=== PATIENT | male | born 1970 | race African-American/Black ===

== ENCOUNTER 2016-06-30 23:08 | Emergency (ER) | payer SELFPAY ==
[2016-06-30] MEDS ORDERED: DOXYCYCLINE MONOHYDRATE 100 MG CAPSULE PO ONE (23:35)
--- NOTE | 2016-06-30 23:36 | ED Physician Documentation ---
General Adult - HISTORIAN Historian: patient - HPI Stated Complaint: Irritation to top of posterior thigh/buttock Chief Complaint: General Adult Onset: days ago Timing: still present Severity: moderate Further Comments: yes (Pt is a 46 yo male with an abscess in L buttock x 3 days. No n/v, fever.) - ROS CONST: no problems EYES/ENT: none CVS/RESP: none GI/: none MS/SKIN/LYMPH: other (abscess L buttock) - PAST HX Past History: other (previous abscess in thigh) Other History: none Surgeries/Procedures: none Allergies/Adverse Reactions: Allergies Allergy/AdvReac Type Severity Reaction Status Date / Time No Known Allergies Allergy Verified 06/30/16 23:28 Home Medications: Ambulatory Orders Medication Instructions Recorded Doxycycline Monohydrate 100 mg PO Q12H #20 tablet 06/30/16 - SOCIAL HX Smoking History: non-smoker - FAMILY HX Family History: No - VITAL SIGNS Vital Signs: Vital Signs Temp Pulse Resp BP Pulse Ox 98 F 91 H 20 133/74 98 06/30/16 23:09 06/30/16 23:09 06/30/16 23:09 06/30/16 23:09 06/30/16 23:09 - REVIEWED ASSESSMENTS Nursing Assessment Reviewed: Yes Vitals Reviewed: Yes Progress - Progress Progress: Pt declined I&D, trial of abx only. Will return if sx unimproved. Rx Doxycycline 100 mg po bid x 10 days, 1 RF, 1st dose in ER. General Adult Physical Exam - PHYSICAL EXAM GENERAL APPEARANCE: mild distress EENT: pharynx normal NECK: normal inspection, supple RESPIRATORY: no resp distress, chest non-tender, breath sounds normal CVS: reg rate & rhythm, heart sounds normal ABDOMEN: soft, normal bowel sounds SKIN: other (4 cm abscess, L buttock, warm, tender) NEURO: oriented X3 Discharge Clincal Impression: Abscess of left buttock Prescriptions: Doxycycline Monohydrate 100 mg PO Q12H #20 tablet Referrals: Primary Doctor,No [Primary Care Provider] - Home Medications: Ambulatory Orders Doxycycline Monohydrate 100 mg PO Q12H #20 tablet 06/30/16 Condition: Good Disposition: 01 HOME, SELF-CARE Decision to Admit: NO Decision Time: 23:36
[2016-06-30 23:42] VITALS: BP 133/74
== END 2016-06-30 23:40 | disposition home or self-care (01) ==
LOC: ED 23:08
DX: L02.31 Cutaneous abscess of buttock (principal)
CPT/HCPCS: 99283

== ENCOUNTER 2016-12-26 11:03 | Outpatient (CLI) | payer OTHER ==
[2016-12-27 09:04] LABS: eGFR (African) > 60; eGFR (Non-African) > 60
== END 2016-12-26 11:04 ==
LOC: LAB 11:03
PROVIDERS: ATTEND Physician Assistant
DX: Z00.00 Encounter for general adult medical examination without abnormal findings (principal); Z13.6 Encounter for screening for cardiovascular disorders
CPT/HCPCS: 36415; 80053; 80061

== ENCOUNTER 2017-11-15 16:32 | Emergency (ER) | payer MEDICARE, OTHER ==
[2017-11-15] MEDS ORDERED: AZITHROMYCIN 250 MG TABLET PO ONE (17:13)
--- NOTE | 2017-11-15 17:16 | ED Physician Documentation ---
Male Genitourinary Problems - HISTORIAN Historian: patient - HPI Chief Complaint: Male Genitourinary Problems Onset: days ago Duration: worse Severity: severe - Associated Symptoms Penile Discharge Descripiton: watery, thin - Sexual History Sexual History: unprotected intercourse, known exp. to STD - ROS CONST: none GI/: denies: nausea, vomiting, abdominal pain, problems urinating MS/SKIN/LYMPH: none CVS/RESP: none EYES/ENT: none NEURO/PSYCH: denies: fainting, dizziness, tingling, numbness, anxiety, depression, other - PAST HX Past History: denies: erectile dysfunction Cardiac Disease: none Surgeries/Procedures: none Allergies/Adverse Reactions: Allergies Allergy/AdvReac Type Severity Reaction Status Date / Time sulfamethoxazole AdvReac Rash Verified 11/15/17 17:23 [From Bactrim] trimethoprim [From Bactrim] AdvReac Rash Verified 11/15/17 17:23 Home Medications: Ambulatory Orders Medication Instructions Recorded NK 11/15/17 - SOCIAL HX Smoking History: cigarettes - FAMILY HX Family History: denies: none - VITAL SIGNS Vital Signs: Vital Signs Temp Pulse Resp BP Pulse Ox 97.9 F 75 14 118/72 95 11/15/17 16:33 11/15/17 18:34 11/15/17 18:34 11/15/17 18:34 11/15/17 16:33 - REVIEWED ASSESSMENTS Nursing Assessment Reviewed: Yes Vitals Reviewed: Yes ED Results Lab/Radiology - Orders Orders: ED Orders Category Date Time Status GC [CHLAMYDIA & GONORRHOEAE] Stat Lab 11/15/17 18:15 Received Azithromycin [Zithromax] Med 11/15/17 17:13 Discontinued 1,000 mg PO NOW ONE Lidocaine 1% 5ml(IM or SUTURE) [Xylocaine] Med 11/15/17 17:27 Discontinued 30 mg IJ NOW ONE cefTRIAXone SODIUM [Rocephin] Med 11/15/17 17:13 Discontinued 125 mg IM NOW ONE Male Genitourinary Problems - EXAM General Appearance: mild distress Abdomen: non-tender, no organomegaly Genitals: nml inspection, testicles nml palp.. No: urethral discharge, testicular tenderness EENT: eye inspection normal, DEZ Respiratory: no resp distress CVS: reg rate & rhythm Neuro/Psych: oriented X3 Skin: normal color, warm/dry, NR, INT, PAL, DR Discharge Clincal Impression: Possible exposure to STD Referrals: Primary Doctor,No [Primary Care Provider] - 2 Days Additional Instructions: Use a condom during intercourse. You have been treated in the ER to cover gonorrhea and chlamydia If you are positive with will contact you. No intercourse until drainage has resolved and you have test results back. Condition: Stable Disposition: 01 HOME, SELF-CARE Decision to Admit: NO Decision Time: 17:14
[2017-11-15 17:22] VITALS: BP 118/72
[2017-11-15] MEDS ORDERED: Lidocaine 1% 5ml(IM or SUTURE)(PAIN CLINIC) IJ ONE (17:27)
== END 2017-11-15 17:45 | disposition home or self-care (01) ==
LOC: ED 16:32
DX: R36.9 Urethral discharge, unspecified (principal)
CPT/HCPCS: 87491; 87591; J0696; 96372; 99283

== ENCOUNTER 2018-03-01 17:55 | Emergency (ER) | payer MEDICARE, OTHER ==
[2018-03-01 18:15] VITALS: BP 170/84
[2018-03-01] MEDS ORDERED: IBUPROFEN 200 MG TABLET PO ONE (18:18)
[2018-03-01] MEDS ORDERED: ACETAMINOPHEN 500 MG TABLET PO ONE (18:18)
--- NOTE | 2018-03-01 18:33 | ED Physician Documentation ---
General Adult - HISTORIAN Historian: patient - HPI Stated Complaint: low back pain Chief Complaint: General Adult Additional Information: Low back and Left side pain for a month. Feels like a pulled muscle. Jus gave him tylenol and a muscle relaxant and both helped. Denies unusual activity. Says he is on disability for head injury and can't afford meds. Must have a script. Able to quickly bend down to retireve coat from floor and to climb on stretcher. - ROS CONST: no problems NEURO/PSYCH: denies: tingling, numbness - PAST HX Past History: other (head injury) Allergies/Adverse Reactions: Allergies Allergy/AdvReac Type Severity Reaction Status Date / Time sulfamethoxazole AdvReac Rash Verified 03/01/18 18:18 [From Bactrim] trimethoprim [From Bactrim] AdvReac Rash Verified 03/01/18 18:18 Home Medications: Ambulatory Orders Medication Instructions Recorded NK 11/15/17 - SOCIAL HX Smoking History: cigar (quit 6 months ago) Alcohol Use: occasionally Drug Use: none - FAMILY HX Family History: No - VITAL SIGNS Vital Signs: Vital Signs Temp Pulse Resp BP Pulse Ox 98.4 F 87 16 170/84 97 03/01/18 18:11 03/01/18 18:11 03/01/18 18:11 03/01/18 18:11 03/01/18 18:11 - REVIEWED ASSESSMENTS Nursing Assessment Reviewed: Yes Vitals Reviewed: Yes ED Results Lab/Radiology - Orders Orders: ED Orders Category Date Time Status Acetaminophen [Tylenol Extra Strength] Med 03/01/18 18:18 Discontinued 1,000 mg PO NOW ONE Ibuprofen [Advil] Med 03/01/18 18:18 Discontinued 600 mg PO NOW ONE General Adult Physical Exam - PHYSICAL EXAM GENERAL APPEARANCE: no distress EENT: eye inspection normal, ENT inspection normal NECK: normal inspection, supple RESPIRATORY: no resp distress, breath sounds normal CVS: reg rate & rhythm, heart sounds normal BACK: normal inspection, no CVA tenderness, other (no vertebral tenderness. no detectable muscle spasm) SKIN: warm/dry, normal color EXTREMITIES: normal range of motion (gait and stance) NEURO: oriented X3, CN's nml as tested, motor nml, sensation nml, other (reflexes 2+ throughout) Discharge Clincal Impression: Lumbar strain Qualifiers: Encounter type: initial encounter Qualified Code(s): S39.012A - Strain of muscle, fascia and tendon of lower back, initial encounter Referrals: Primary Doctor,No [Primary Care Provider] - 2 Days Condition: Good Disposition: 01 HOME, SELF-CARE Decision to Admit: NO Decision Time: 18:30
== END 2018-03-01 18:33 | disposition home or self-care (01) ==
LOC: ED 17:55
DX: S39.012A Strain of muscle, fascia and tendon of lower back, initial encounter (principal)
CPT/HCPCS: 99282; 99283

== ENCOUNTER 2018-03-08 18:18 | Emergency (ER) | payer MEDICARE ==
--- NOTE | 2018-03-08 19:27 | ED Physician Documentation ---
Low Back Pain - HISTORIAN Historian: patient - HPI Stated Complaint: low back pain/scrotal pain Chief Complaint: Low Back Pain/ Injury Additional Information: hx lifting w/near fall carol area lt sacroiliac and gluteal and lt inguinal dillon History: denies: history of chronic pain: (no prev sig back pain until in december pt moved prolonged lifting carol w/ large entertainment center lift in twist felt pop int pain since -relieved but not eliminated w/IBU 600 tid) Onset: other (december) Duration: continues in ED, intermittent, worse Context: lifting, turning, bending. denies: fall Where: home Other Injuries: back Severity: moderate Quality: burning, dull Associated Symptoms: difficulty walking. denies: fever, chills, sweating, constipation, incontinence, nausea, vomiting, problems urinating Relieved By: other (ibu-dont last) Further Comments: yes (some mild lt inguinal and testicular discomfort-not pain just dont feel right) - ROS CONST: no problems CVS/RESP: none EYES/ENT: none MS/SKIN/LYMPH: back pain. denies: neck pain, joint pain, leg swelling, ankle swelling Neuro/Psych: none GI/: denies: abdominal pain, black stools - PAST HX Past History: other (none) Other History: other Surgeries/Procedures: other (vasectomy) Allergies/Adverse Reactions: Allergies Allergy/AdvReac Type Severity Reaction Status Date / Time sulfamethoxazole AdvReac Rash Verified 03/08/18 18:45 [From Bactrim] trimethoprim [From Bactrim] AdvReac Rash Verified 03/08/18 18:45 Home Medications: Ambulatory Orders Medication Instructions Recorded NK 11/15/17 - SOCIAL HX Smoking History: non-smoker Alcohol Use: occasionally Drug Use: none - FAMILY HX Family History: no significant history - VITAL SIGNS Vital Signs: Vital Signs Temp Pulse Resp BP Pulse Ox 97.9 F 62 16 132/79 98 03/08/18 18:33 03/08/18 20:58 03/08/18 20:58 03/08/18 20:58 03/08/18 20:58 - REVIEWED ASSESSMENTS Nursing Assessment Reviewed: Yes Vitals Reviewed: Yes ED Results Lab/Radiology - Radiology Radiology Impressions: spondylolithisis - Orders Orders: ED Orders Category Date Time Status LUMBAR SPINE WITH OBLIQUES [L SPINE 4 VIEWS] [RAD] Stat Exams 03/08/18 Taken Low Back Pain/Injury - Physical Exam General Appearance: moderate distress EENT: eye inspection normal Neck: non-tender, painless ROM. No: vertebral point-tendernes, muscle spasm, decreased ROM Resp/CVS: breath sounds nml, lungs clear, reg. rate & rhythm Abdomen: non-tender Back: other (lt sacroiliac sig palp tenderness plul lt low lumbar some mild sciatic tenderness-no sig radiccular pain) Rectal/Genital: other (testicles non tender alondra cords no found ing hernia dlight soreness) Straight Leg Raising: Negative Left, Negative Right Neuro/Psych: oriented x3, motor nml, sensation nml, mood/affect nml, other (apparent sib lo back kpain arising from lying lynn sitting posn). No: difficulty walking Skin: warm/dry, normal color. No: cyanosis, diaphoresis, jaundice Discharge Clincal Impression: recurrentaccute back pain, spondylolithisis Referrals: Primary Doctor,No [Primary Care Provider] - 2 Days Condition: Good Disposition: 01 HOME, SELF-CARE Decision to Admit: NO Decision Time: 21:20
[2018-03-08 21:00] VITALS: BP 132/79
--- NOTE | 2018-03-09 06:40 | Diagnostic Imaging Report ---
KEVIN BRYANT [facility] [address] [facility] [address] Report Submission Date: Mar 08, 2018 7:55:38 PM CUSTOMER EXPERIENCE MANAGER Patient Study Name: ROMA MESSER Date: Mar 08, 2018 7:18:24 PM CUSTOMER EXPERIENCE MANAGER Modality Type: DX Gender: M Description: SPINE : 74 Institution: [facility] Physician: KEVIN BRYANT Lumbar spine, five views. History: Lower back pain and sciatic post lifting, pain since December. Findings: The vertebral body heights are normal. There is mild anterolisthesis of L5 on S1 present with mild facet arthropathy at L4-5 and S1. Sacroiliac joints are normal. Suspected L5 pars defect is also present. Impression: 1. Mild lower lumbar spondylosis. 2. L5 pars defects suspected with associated mild grade 1 anterolisthesis of L5 on S1. Electronically signed on Mar 08, 2018 7:55:38 PM CUSTOMER EXPERIENCE MANAGER by: Melvin KING
== END 2018-03-08 20:58 | disposition home or self-care (01) ==
LOC: ED 18:18
DX: M54.5 Low back pain (principal); M43.17 Spondylolisthesis, lumbosacral region
CPT/HCPCS: 72110; 99282; 99283

== ENCOUNTER 2018-09-08 16:38 | Emergency (ER) | payer OTHER ==
--- NOTE | 2018-09-08 17:22 | ED Physician Documentation ---
Dizziness - HISTORIAN Historian: patient - HPI Stated Complaint: dizzy Chief Complaint: Dizziness Additional Information: Patient presents to ED with dizziness. Patient states he was at work and stood up suddenly when he became dizzy. A bystander at work took his pulse and said it was fast. Patient reports not eating or drinking at all today. He was given a glass of water and a bag of potato chips upon leaving work. Upon arrival to ED he was feeling better. Timing: sudden onset, gone now Severity: mild Associated Symptoms: none Decreased Ability to Stand/ Walk: denies: weak Usually: walks w/o assistance Worsened By: changing position (standing) Further Comments: no - ROS CONST: none EYES/ENT: problems with vision GI/: denies: abdominal pain MS/SKIN/LYMPH: none NEURO/PSYCH: none CVS/RESP: denies: chest pain, shortness of breath - PAST HX Past History: none Cardiac Disease: none Surgeries/Procedures: none Allergies/Adverse Reactions: Allergies Allergy/AdvReac Type Severity Reaction Status Date / Time sulfamethoxazole AdvReac Rash Verified 03/08/18 18:45 [From Bactrim] trimethoprim [From Bactrim] AdvReac Rash Verified 03/08/18 18:45 Home Medications: Ambulatory Orders Medication Instructions Recorded NK 11/15/17 - SOCIAL HX Smoking History: non-smoker Alcohol Use: none Drug Use: none - FAMILY HX Family History: none - VITAL SIGNS Vital Signs: Vital Signs Temp Pulse Resp BP Pulse Ox 132/79 03/08/18 20:58 - REVIEWED ASSESSMENTS Nursing Assessment Reviewed: Yes Vitals Reviewed: Yes Progress - Progress Progress: 1700 Patient refuse IV fluids. States he will drink water. Dizziness Physical Exam - Physical Exam General Appearance: no distress EENT: DEZ Respiratory: no respiratory distress, breath sounds nml CVS: reg rate & rhythm, heart sounds normal Abdomen: soft Skin: warm/dry Neuro: nml orientation, nml speech, nml cognition, mood/affect nml Extremities: non-tender, no edema Cranial: nml as tested, no evidence of acute CVA Cerebellar: nml as tested Sensorimotor: motor nml Discharge Clincal Impression: Dizziness Referrals: Primary Doctor,No [Primary Care Provider] - 2 Days Additional Instructions: 1. Drink plenty of fluids to maintain proper hydration. Avoid caffeine and alcohol 2. Eat regularly 3. Follow up with PCP within 1 week 4. Return to ER for new or worsen symptoms Condition: Stable Disposition: 01 HOME, SELF-CARE Decision to Admit: NO Date of Decison to Admit: 09/08/18 Decision Time: 17:27
[2018-09-08 17:40] VITALS: BP 113/74
== END 2018-09-08 17:35 | disposition home or self-care (01) ==
LOC: ED 16:38
DX: R42 Dizziness and giddiness (principal)

== ENCOUNTER 2018-10-20 16:23 | Emergency (ER) | payer MEDICARE, OTHER ==
[2018-10-20 17:15] VITALS: BP 118/79
--- NOTE | 2018-10-20 17:32 | ED Physician Documentation ---
Hip Injury/Pain - HISTORIAN Historian: patient - HPI Stated Complaint: R hip pain Chief Complaint: Hip Pain Additional Information: Patient is a 48 year old male that presents to the ER ambulatory with complaint of right hip pain that has been going on all his life. Pt states he broke his right leg (no surgical repair) as a baby and he has been having trouble with it since that time. Patient states while at work he has to stoop and stand back up, which aggravates the pain. He has not taken anything OTC for relief as he states that does not help. He appears to be in no acute distress. Discussed physical therapy if xray shows no acute fracture; he agrees. Onset: other (Years) Where: work Severity: mild Duration: intermittent pain Context: no injury Symptoms Prior to Fall: none Other Injuries: none Subsequent Symptoms: denies: sensory loss, motor loss, weakness - ROS CONST: no problems RESP: denies: shortness of breath GI/: none EYES/ENT: none MS/SKIN/LYMPH: denies: neck pain, ankle swelling, leg swelling NEURO/PSYCH: denies: anxiety, depression - PAST HX Cardiac Disease: none PE Risk Factors: none Immunizations: UTD Allergies/Adverse Reactions: Allergies Allergy/AdvReac Type Severity Reaction Status Date / Time sulfamethoxazole AdvReac Rash Verified 10/20/18 16:44 [From Bactrim] trimethoprim [From Bactrim] AdvReac Rash Verified 10/20/18 16:44 Home Medications: Ambulatory Orders Medication Instructions Recorded Naproxen [Naprosyn] 500 mg PO BID #20 tablet 10/20/18 - SOCIAL HX Smoking History: greater than 1 pack/day Alcohol Use: none Drug Use: marijuana - FAMILY HX Family History: No - VITAL SIGNS Vital Signs: Vital Signs Temp Pulse Resp BP Pulse Ox 98.4 F 86 16 118/79 97 10/20/18 17:52 10/20/18 17:52 10/20/18 17:52 10/20/18 17:52 10/20/18 17:52 - REVIEWED ASSESSMENTS Nursing Assessment Reviewed: Yes Vitals Reviewed: Yes ED Results Lab/Radiology - Radiology Radiology Impressions: Right hip 2 views Date of Exam: October 20, 2018. History: PT STATES CHRONIC RT HIP PAIN, WORSENING OVER THE LAST 3 YEARS (Hx) / Findings: Mild degenerative osteoarthritic changes are present. There is no evidence of acute fracture or dislocation. The visualized portion of the right pelvis is intact. Impression: Mild degenerative osteoarthritic changes. Electronically signed on Oct 20, 2018 5:35:17 PM CDT by: Clarita Blanco - Orders Orders: ED Orders Category Date Time Status RT HIP 2VIEW COMPLETE [RAD] Stat Exams 10/20/18 Completed Hip Injury/Pain Physical Exam - EXAM General Appearance: no acute distress, alert Extremities: non-tender, nml ROM, no obvious injury EENT: DEZ Neck: nml inspection Respiratory: breath sounds nml CVS: heart sounds normal Back: non-tender, painless ROM Skin: warm/dry Neuro/Psych: oriented x3, neuro grossly intact, mood/affect nml Discharge Clincal Impression: Chronic right hip pain Prescriptions: Naproxen [Naprosyn] 500 mg PO BID #20 tablet Referrals: Primary Doctor,No [Primary Care Provider] - 2 Days Additional Instructions: Take Naproxen 500mg by mouth twice a day for 10 days Will send referral for physical therapy May use heating pad May use selam Lopez aspercreme Follow up with PCP Condition: Good Disposition: 01 HOME, SELF-CARE Decision to Admit: NO Decision Time: 19:22
--- NOTE | 2018-10-20 18:13 | Diagnostic Imaging Report ---
HEATHER GUILLEN [facility] [address] [facility] [address] [address] Report Submission Date: Oct 20, 2018 5:35:17 PM CDT Patient Study Name: ROMA MESSER Date: Oct 20, 2018 4:59:05 PM CDT Modality Type: DX Gender: M Description: RT HIP 2VIEW COMPLETE : 74 Institution: [facility] Physician: HEATHER GUILLEN Right hip 2 views Date of Exam: October 20, 2018. History: PT STATES CHRONIC RT HIP PAIN, WORSENING OVER THE LAST 3 YEARS (Hx) / Findings: Mild degenerative osteoarthritic changes are present. There is no evidence of acute fracture or dislocation. The visualized portion of the right pelvis is intact. Impression: Mild degenerative osteoarthritic changes. Electronically signed on Oct 20, 2018 5:35:17 PM CDT by: Clarita KING
== END 2018-10-20 17:52 | disposition home or self-care (01) ==
LOC: ED 16:23
DX: M25.551 Pain in right hip (principal); G89.29 Other chronic pain
CPT/HCPCS: 73502; 99283; 99284

== ENCOUNTER 2019-02-06 19:32 | Emergency (ER) | payer MEDICARE, OTHER ==
--- NOTE | 2019-02-06 19:37 | ED Physician Documentation ---
General Adult - HISTORIAN Historian: patient - HPI Stated Complaint: cough x 2 days with nasal drainage no fever Chief Complaint: Cough/ Upper Respiratory Onset: days ago (2) Timing: still present Severity: mild Further Comments: yes (He notes a cough for 2 days no fever. Sick contacts. No OTC Meds used. No rash) - ROS CONST: no problems EYES/ENT: none CVS/RESP: cough GI/: none MS/SKIN/LYMPH: none NEURO/PSYCH: denies: headache - PAST HX Past History: none Immunizations: UTD Allergies/Adverse Reactions: Allergies Allergy/AdvReac Type Severity Reaction Status Date / Time sulfamethoxazole AdvReac Rash Verified 02/06/19 19:50 [From Bactrim] trimethoprim [From Bactrim] AdvReac Rash Verified 02/06/19 19:50 Home Medications: Ambulatory Orders Medication Instructions Recorded NK 02/06/19 - SOCIAL HX Smoking History: cigarettes Alcohol Use: none Drug Use: none - FAMILY HX Family History: No - VITAL SIGNS Vital Signs: Vital Signs Temp Pulse Resp BP Pulse Ox 118/79 10/20/18 17:52 - REVIEWED ASSESSMENTS Nursing Assessment Reviewed: Yes Vitals Reviewed: Yes General Adult Physical Exam - PHYSICAL EXAM GENERAL APPEARANCE: no distress EENT: eye inspection normal, ENT inspection normal, pharynx normal, no signs of dehydration NECK: normal inspection RESPIRATORY: no resp distress, chest non-tender, breath sounds normal CVS: reg rate & rhythm, heart sounds normal ABDOMEN: soft, normal bowel sounds, no distension BACK: normal inspection, no CVA tenderness SKIN: warm/dry EXTREMITIES: non-tender, normal range of motion, no evidence of injury, no edema NEURO: oriented X3 Discharge Clincal Impression: Cough Referrals: Primary Doctor,No [Primary Care Provider] - 2 Days Comments: 1. Flonase OTC as directed 2. Tessalon Pearls 100 mg take 1 by mouth every 8 hours as needed for cough 3. Follow up with PCP in 2-4 days 4. Return to ER for any increased concerns Condition: Stable Disposition: 01 HOME, SELF-CARE Decision to Admit: NO Date of Decison to Admit: 02/06/19 Decision Time: 20:36
--- NOTE | 2019-02-06 20:30 | Diagnostic Imaging Report ---
PATIENT MR#: [id number] PATIENT PATIENT NAME: ROMA MESSER DATE OF : 1970 REFERRING PHYSICIAN: Sara Trejo EXAM DATE: 02/06/2019 ACCESSION NUMBER: [id number] EXAM DESCRIPTION: CHEST 2VIEW 2 views of the chest Clinical history: cough Findings: The heart size is normal. The pulmonary vasculature is normal. No pleural effusion, pneumothorax or a lveolar consolidation. Impression: No acute disease in the chest Read by: Dr. Betito Kaur Transcribed by: Transcribed Date: Electronically signed by: Dr. Betito Kaur Date signed: 02/06/2019 8:29:43 PM
[2019-02-06 20:50] VITALS: BP 170/84
== END 2019-02-06 20:40 | disposition home or self-care (01) ==
LOC: ED 19:32
DX: R05 Cough (principal); F17.210 Nicotine dependence, cigarettes, uncomplicated
CPT/HCPCS: 71046; 99282